=== PATIENT | female | born 1995 | race Hispanic/Latino ===

== ENCOUNTER 2018-07-07 05:33 | Emergency (ER) | payer OTHER ==
[2018-07-07] MEDS ORDERED: IBUPROFEN 200 MG TAB PO ONE (06:15)
--- NOTE | 2018-07-07 06:36 | EDPHYS ---
Physician Documentation [facility] Name: Miriam Fowler Age: 23 yrs Sex: Female : 1995 Arrival Date: 07/07/2018 Time: 05:38 Bed 19 Private MD: ED Physician Olu Michael HPI: 07/07 06:24 This 23 yrs old Female presents to ER via Ambulatory with complaints of Fever. kb 06:27 The patient reports fever, that was measured at 104 degrees Fahrenheit, with an kb emergency department temperature of 102.2 degrees Fahrenheit. Onset: The symptoms/episode began/occurred this morning. Modifying factors: there are no obvious modifying factors. Associated signs and symptoms: Pertinent positives: swelling, redness and tenderness to right breast. Severity of symptoms: At their worst the symptoms were moderate in the emergency department the symptoms are unchanged. The patient has not experienced similar symptoms in the past. The patient has not recently seen a physician. Pt reports she started running fever at 0330. Took tylenol and it was higher the next time she checked it. States it was 104 so she came to get checked out. Had at the beginning of the month. Surgical incision healing well. No signs of infection noted there. . 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 - Social history:: Smoking status: Patient/guardian denies using tobacco. - Ebola Screening: : No symptoms or risks identified at this time. ROS: 06:15 ENT: Negative for injury, pain, and discharge, Neck: Negative for injury, pain, and kb swelling, Cardiovascular: Negative for chest pain, palpitations, and edema, Respiratory: Negative for shortness of breath, cough, wheezing, and pleuritic chest pain, Abdomen/GI: Negative for abdominal pain, nausea, vomiting, diarrhea, and constipation, MS/Extremity: Negative for injury and deformity, Neuro: Negative for headache, weakness, numbness, tingling, and seizure. 06:15 Constitutional: Positive for fever, Negative for body aches, chills, fatigue, malaise, poor PO intake, weight loss. 06:15 Skin: Positive for cellulitis, of the right breast. Exam: 06:15 Constitutional: This is a well developed, well nourished patient who is awake, alert, kb and in no acute distress. Head/Face: Normocephalic, atraumatic. Chest/axilla: Normal chest wall appearance and motion. Nontender with no deformity. No lesions are appreciated. Cardiovascular: Regular rate and rhythm with a normal S1 and S2. No gallops, murmurs, or rubs. Normal PMI, no JVD. No pulse deficits. Respiratory: Lungs have equal breath sounds bilaterally, clear to auscultation and percussion. No rales, rhonchi or wheezes noted. No increased work of breathing, no retractions or nasal flaring. Abdomen/GI: Soft, non-tender, with normal bowel sounds. No distension or tympany. No guarding or rebound. No evidence of tenderness throughout. Back: No spinal tenderness. No costovertebral tenderness. Full range of motion. MS/ Extremity: Pulses equal, no cyanosis. Neurovascular intact. Full, normal range of motion. Neuro: Awake and alert, GCS 15, oriented to person, place, time, and situation. Cranial nerves II-XII grossly intact. Motor strength 5/5 in all extremities. Sensory grossly intact. Cerebellar exam normal. Normal gait. 06:15 Skin: cellulitis, that is moderate, on the right breast. Vital Signs: 05:59 BP 128 / 81; Pulse 140; Resp 22; Temp 99.8(TE); Pulse Ox 97% on R/A; Weight 118.84 kg ak1 (R); Height 5 ft. 4 in. (162.56 cm) (R); 06:00 Temp 102.2; ea 06:48 Pulse 126; Resp 18; Temp 102.3(O); Pulse Ox 98% on R/A; tl2 07:49 BP 115 / 66; Pulse 112; Resp 17; Temp 99.8(O); Pulse Ox 99% on R/A; tw2 05:59 Body Mass Index 44.97 (118.84 kg, 162.56 cm) ak1 MDM: 05:58 Patient medically screened. [facility] 06:06 Patient medically screened. kb 06:23 Data reviewed: vital signs, nurses notes. Data interpreted: Pulse oximetry: on room air kb is 97 %. Interpretation: normal. Counseling: I had a detailed discussion with the patient and/or guardian regarding: the historical points, exam findings, and any diagnostic results supporting the discharge/admit diagnosis, the need for outpatient follow up, an OB/Gyne specialist, to return to the emergency department if symptoms worsen or persist or if there are any questions or concerns that arise at home. Administered Medications: 06:09 Drug: Ibuprofen 600 mg Route: PO; tl2 07:20 Follow up: Response: No adverse reaction tw2 Disposition: 15:02 Co-signature as Attending Physician, Olu Michael MD I agree with the assessment and [facility] plan of care. Disposition: 07/07/18 06:35 Discharged to Home. Impression: Nonpurulent mastitis associated with . - Condition is Stable. - Discharge Instructions: and Mastitis, Mastitis, [id number]. - Prescriptions for Dicloxacillin 500 mg Oral Capsule - take 1 capsule by ORAL route every 6 hours for 10 days; 40 capsule. - Medication Reconciliation Form, Thank You Letter, Antibiotic Education, Prescription Opioid Use form. - Follow up: Private Physician; When: 2 - 3 days; Reason: Recheck today's complaints, Continuance of care, Re-evaluation by your physician. Follow up: Emergency Department; When: As needed; Reason: Worsening of condition. Signatures: Cherri Montero, DENTAL RECEPTIONIST-C DENTAL RECEPTIONIST-Cyb Olu Michael MD MD cha Krenek, Amber RN RN ak1 Soo Judge RN RN tw2 nAa Lorenzo RN RN tl2 Corrections: (The following items were deleted from the chart) 07:52 06:35 07/07/2018 06:35 Discharged to Home. Impression: Nonpurulent mastitis associated tw2 with . Condition is Stable. Forms are Medication Reconciliation Form, Thank You Letter, Antibiotic Education, Prescription Opioid Use. Follow up: Private Physician; When: 2 - 3 days; Reason: Recheck today's complaints, Continuance of care, Re-evaluation by your physician. Follow up: Emergency Department; When: As needed; Reason: Worsening of condition. kb
--- NOTE | 2018-07-07 06:36 | ER ---
[facility] Name: Miriam Fowler Age: 23 yrs Sex: Female : 1995 Arrival Date: 07/07/2018 Time: 05:38 Bed 19 Private MD: Diagnosis: Nonpurulent mastitis associated with Presentation: 07/07 06:00 Presenting complaint: Patient states: fever since 0330, took 1 gram tylenol at 0330. pt ak1 c/o right breast pain around the nipple. Transition of care: patient was not received from another setting of care. Onset of symptoms was July 07, 2018. Risk Assessment: Do you want to hurt yourself or someone else? Patient reports no desire to harm self or others. Initial Sepsis Screen: Does the patient meet any 2 criteria? RR > 20 per min. HR > 90 bpm. Yes Does the patient have a suspected source of infection? Yes: Skin breakdown/wound If YES to both, name of provider notified: Cherri GRAY. Care prior to arrival: None. 06:00 Method Of Arrival: Ambulatory ak1 06:00 Acuity: POLO 3 ak1 Triage Assessment: 06:02 General: Appears uncomfortable, Behavior is calm, cooperative. Pain: Complains of pain ak1 in right nipple and right breast. 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 - Social history:: Smoking status: Patient/guardian denies using tobacco. - Ebola Screening: : No symptoms or risks identified at this time. Screenin:03 Abuse screen: Denies threats or abuse. Denies injuries from another. Nutritional ak1 screening: No deficits noted. Tuberculosis screening: No symptoms or risk factors identified. Fall Risk None identified. Assessment: 06:10 General: Appears in no apparent distress. uncomfortable, Behavior is calm, cooperative, tl2 appropriate for age. General: Reports fever for 0-12 hours. Pain: Complains of pain in right breast. Neuro: Level of Consciousness is awake, alert, obeys commands, Oriented to person, place, time, situation. Cardiovascular: Denies chest pain. Respiratory: Airway is patent Respiratory effort is even, unlabored, Respiratory pattern is regular, symmetrical. GI: No signs and/or symptoms were reported involving the gastrointestinal system. : No signs and/or symptoms were reported regarding the genitourinary system. Derm: Skin is flushed. 07:06 Reassessment: pt's vitals remain elevated. Gave report to day nurse to recheck vitals tl2 in 30 minutes to see if they improve. 07:51 Reassessment: Patient appears in no apparent distress at this time. Patient and/or tw2 family updated on plan of care and expected duration. Pain level reassessed. Patient is alert, oriented x 3, equal unlabored respirations, skin warm/dry/pink. Patient states feeling better. Patient states symptoms have improved. Vital Signs: 05:59 BP 128 / 81; Pulse 140; Resp 22; Temp 99.8(TE); Pulse Ox 97% on R/A; Weight 118.84 kg ak1 (R); Height 5 ft. 4 in. (162.56 cm) (R); 06:00 Temp 102.2; ea 06:48 Pulse 126; Resp 18; Temp 102.3(O); Pulse Ox 98% on R/A; tl2 07:49 BP 115 / 66; Pulse 112; Resp 17; Temp 99.8(O); Pulse Ox 99% on R/A; tw2 05:59 Body Mass Index 44.97 (118.84 kg, 162.56 cm) ak1 ED Course: 05:38 Patient arrived in ED. es 05:58 Cherri Montero FNP-C [facility]. kb 05:58 Olu Michael MD is Attending Physician. kb 06:02 Triage completed. ak1 06:02 Arm band placed on Patient placed in an exam room, on a stretcher, on pulse oximetry, ak1 Patient notified of wait time. 06:03 Patient has correct armband on for positive identification. Bed in low position. Call ak1 light in reach. Side rails up X 1. Adult w/ patient. Pulse ox on. NIBP on. 06:38 Ana Lorenzo, RN is Primary Nurse. tl2 07:06 No provider procedures requiring assistance completed. tl2 07:26 Primary Nurse role handed off by Ana Lorenzo RN tw2 07:26 Soo Judge, RN is Primary Nurse. tw2 07:26 Awaiting: pt condition and vs re-evaluation at this time, prior to discharge. tw2 07:51 Patient did not have IV access during this emergency room visit. tw2 Administered Medications: 06:09 Drug: Ibuprofen 600 mg Route: PO; tl2 07:20 Follow up: Response: No adverse reaction tw2 Outcome: 06:35 Discharge ordered by MD. kb 07:51 Discharged to home ambulatory, with family. tw2 07:51 Condition: stable 07:51 Discharge instructions given to patient, family, Instructed on discharge instructions, follow up and referral plans. medication usage, Demonstrated understanding of instructions, follow-up care, medications, Prescriptions given X 1. 07:52 Patient left the ED. tw2 Signatures: Cherri Montero, BOAT RIDE OPERATOR-C BOAT RIDE OPERATOR-Mary Pascual Amber RN RN ak1 Soo Judge, RN RN tw2 Ana Lorenzo, RN RN tl2 Neelima Song, RN RN ea
[2018-07-07 13:43] VITALS: BP 115/66; TEMP 99.8; O2SAT 99
== END 2018-07-07 07:52 | disposition home or self-care (01) ==
LOC: ER 05:33
DX: O91.23 Nonpurulent mastitis associated with lactation (principal); Z88.1 Allergy status to other antibiotic agents; Z88.8 Allergy status to other drugs, medicaments and biological substances
CPT/HCPCS: 99283